=== PATIENT | female | born 1975 | race African-American/Black ===

== ENCOUNTER 2019-11-06 04:45 | Day surgery (SDC) | payer OTHER ==
[2019-11-05 09:38] VITALS: BMI 35.1
[2019-11-06] MEDS ORDERED: MIDAZOLAM HCL 2 MG/2 ML SINGLE DOSE VIAL ONE (13:25)
[2019-11-06] MEDS ORDERED: PROPOFOL 20 ML ONE ×2 (13:25→14:30)
[2019-11-06] MEDS ORDERED: KETOROLAC TROMETHAMINE 30 MG/1 ML VIAL ONE ×2 (13:25→14:53)
[2019-11-06] MEDS ORDERED: LIDOCAINE HCL/PF 2% SDV 5ML VIAL ONE (13:25)
[2019-11-06] MEDS ORDERED: oxyCODONE HCL 5 MG TABLET PO PRN (13:54)
[2019-11-06] MEDS ORDERED: ONDANSETRON 4 MG/2 ML VIAL IVPUSH PRN (13:54)
[2019-11-06] MEDS ORDERED: ACETAMINOPHEN 1000 MG/100 ML VIAL (NON FORMULARY) IVPB ONE (13:55)
[2019-11-06] MEDS ORDERED: LACTATED RINGERS SOLUTION 1,000 ML IV SCH (14:00)
--- NOTE | 2019-11-06 14:18 | HP ---
History & Physical Update - History History: No Change - Physical Physical: No Change - Assessment Assessment: No Change - Plan Plan: No Change (Hysteroscopy, excision of uterine mass, D&C)
[2019-11-06] MEDS ORDERED: ceFAZolin SODIUM 1 GM VIAL ONE (14:38)
[2019-11-06] MEDS ORDERED: ceFAZolin SODIUM 1 GM VIAL IVPB ONE (14:39)
[2019-11-06] MEDS ORDERED: DEXAMETHASONE SOD PHOSPHATE 4 MG/1 ML VIAL ONE (14:42)
--- NOTE | 2019-11-06 15:10 | OP ---
Operative Note - Note: Operative Date: 11/06/19 Pre-Operative Diagnosis: Endometrial polyp, fibroid uterus, menorrhagia Operation: Hysterosocpy, polypectomy, D&C Findings: Enlarged uterine cavity, sounded to 9cm. Anterior endometrial polyp. Otherwise normal uterine cavity. Post-Operative Diagnosis: Same as Pre-op Surgeon: Sergio Law Anesthesiologist/CONTROLLED ATMOSPHERIC FURNACE BRAZER: Darshana Sequeira Anesthesia: General Estimated Blood Loss (mls): 10 Blood Volume Replaced (mls): 0 Fluid Volume Replaced (mls): 500 Operative Report Dictated: Yes
[2019-11-06] MEDS ORDERED: ACETAMINOPHEN INJECTION 100 ML IVPB ONE (15:45)
[2019-11-06 18:37] VITALS: BP 113/82; PULSE 81; TEMP 97.1
--- NOTE | 2019-11-07 11:34 | OP ---
DATE OF OPERATION: 11/06/2019 PREOPERATIVE DIAGNOSES: Endometrial polyp, fibroid uterus, menorrhagia. POSTOPERATIVE DIAGNOSES: Endometrial polyp, fibroid uterus, menorrhagia. PROCEDURE: Hysteroscopy, polypectomy, dilation and curettage. SURGEON: Rommel Reyes MD ANESTHESIOLOGIST: TASH Gongora ANESTHESIA: General. COMPLICATIONS: None. ESTIMATED BLOOD LOSS: 10 mL. INTRAVENOUS FLUIDS: 500 mL. FINDINGS: Examination under anesthesia revealed a small anteverted uterus with no pelvic or adnexal masses; however, the examination was limited by the patient's habitus. The hysteroscopy revealed a slightly enlarged uterine cavity that was sounded to 9 cm. There was an anterior wall endometrial polyp. Otherwise the uterine cavity appeared to be within normal limits. PROCEDURE: The patient was met preoperatively. Risks, benefits and alternatives of surgery were discussed in detail. The consent form was reviewed and discussed. All questions were answered. The patient verbalized understanding and requested to proceed with the surgery. The patient was brought to the OR with the IV running. She was placed on the surgical table in a supine position. The general anesthesia was achieved without difficulty. The patient was then placed in a dorsal lithotomy position using adjustable Oscar stirrups. She was examined under anesthesia with the findings as described above. The patient was then prepped and draped in the usual sterile fashion. A timeout procedure was conducted as per standard protocol. The surgeon then proceeded with the operation. A weighted speculum was introduced inside the vagina with good visualization of the cervix. The cervix was grasped with a single-tooth tenaculum. The endocervical canal was gently dilated to accommodate a size 23 Ram dilator. A hysteroscope was introduced inside the uterine cavity with the findings as described above. A Symphion resectoscope was then used to excise the endometrial polyp. Once this was accomplished the hysteroscope was removed and a sharp endometrial curettage was performed. All of the tissue was submitted to Pathology. Once the procedure was completed the instruments were removed from the patient. The sponge, lap, instrument counts were correct. The patient was once again examined. Good hemostasis was noted. The patient was then returned to a supine position. She was transferred to recovery room in stable condition and awake. ROMMEL REYES M.D. [id number]
--- NOTE | 2019-11-08 17:31 | PATH ---
Surgical Pathology Report Patient Name: [facility]I [facility]. Rec. #: [id number] /Age/Gender: 1975 (Age: 44) / F Account: [id number] Location: [facility] SURGICAL Taken: 11/06/2019 Received: 11/07/2019 Reported: 11/08/2019 Physicians: Sergio Law M.D. Specimen(s) Received A: ENDOMETRIAL CURETTINGS B: ENDOMETRIAL POLYP Clinical History Endometrial polyp/fibroid uterus Final Diagnosis A. ENDOMETRIAL CURETTINGS, DILATION AND CURETTAGE: FRAGMENTS OF ENDOMETRIAL POLYP, PROLIFERATIVE ENDOMETRIUM, AND BENIGN ENDOCERVICAL TISSUE. B. ENDOMETRIAL POLYP, POLYPECTOMY: FRAGMENTS OF ENDOMETRIAL POLYP. Electronically Signed Olga Chavis M.D. Gross Description A. Received in formalin labeled "endometrial curettings" are multiple, irregular fragments of pink-emery hemorrhagic soft tissue measuring 3.5 x 3.5 x 1 cm. Entire specimen is submitted in 2 cassettes. B. Received in formalin labeled "endometrial polyp" are multiple, irregular fragments of pink-emery soft tissue measuring 2.5 x 2 x 0.2 cm. Entire specimen is submitted in one cassette. MLSZ/11/07/2019 sanml/11/07/2019
== END 2019-11-06 19:05 | disposition home or self-care (01) ==
LOC: JASU-SURG 04:45
PROVIDERS: ATTEND Obstetrics & Gynecology
PROC: 0UJD8ZZ Inspection of Uterus and Cervix, Via Natural or Artificial Opening Endoscopic (ICD-10-PCS; 2019-11-06)
PROC: 0UB97ZX Excision of Uterus, Via Natural or Artificial Opening, Diagnostic (ICD-10-PCS; principal; 2019-11-06 14:00)
PROC: 0UDB7ZX Extraction of Endometrium, Via Natural or Artificial Opening, Diagnostic (ICD-10-PCS; 2019-11-06 14:00)
DX: N84.0 Polyp of corpus uteri (principal); D25.9 Leiomyoma of uterus, unspecified; N92.0 Excessive and frequent menstruation with regular cycle
CPT/HCPCS: 36415; 84703; 86850; 86900; 86901; 88305-TC; 94760; J0131

== ENCOUNTER 2024-01-22 04:34 | Day surgery (SDC) | payer BC ==
[2024-01-17 14:39] VITALS: BMI 34.4
[2024-01-22] MEDS ORDERED: MIDAZOLAM HCL 2 MG/2 ML SINGLE DOSE VIAL ONE (09:44)
[2024-01-22] MEDS ORDERED: PROPOFOL 60 ML ONE (09:44)
[2024-01-22] MEDS: ceFAZolin SODIUM 1 GM VIAL IVPB ONE (10:48)
[2024-01-22] MEDS ORDERED: SUCCINYLCHOLINE CHLORIDE 200 MG/10 ML SYRINGE ONE (11:05)
[2024-01-22] MEDS ORDERED: oxyCODONE HCL 5 MG TABLET PO PRN (11:35)
[2024-01-22] MEDS ORDERED: ONDANSETRON 4 MG/2 ML VIAL IVPUSH PRN (11:35)
[2024-01-22] MEDS ORDERED: LACTATED RINGERS SOLUTION 1,000 ML IV SCH (11:45)
[2024-01-22 12:54] VITALS: RESP 16; TEMP 97.6
[2024-01-22 15:09] VITALS: BP 140/91; PULSE 90
== END 2024-01-22 15:23 | disposition home or self-care (01) ==
LOC: JASU-SURG 04:34
PROVIDERS: ATTEND Obstetrics & Gynecology
PROC: 0UB98ZZ Excision of Uterus, Via Natural or Artificial Opening Endoscopic (ICD-10-PCS; principal; 2024-01-22 10:00)
DX: N92.0 Excessive and frequent menstruation with regular cycle (principal); N84.0 Polyp of corpus uteri
CPT/HCPCS: 81025; 86850; 86900; 86901; 88305-TC; 94760